=== PATIENT | male | born 1965 | race African-American/Black ===

== ENCOUNTER 2019-08-12 09:11 | Inpatient (IN) ==
[2019-08-17 14:40] VITALS: BP 146/98
== END 2019-08-17 16:49 | disposition home or self-care (01) | DRG 291 ==
LOC: P.ED 09:11 → P.EDIPHOLD 09:12 → SUATTDRO 09:12 → 2N 17:34
PROVIDERS: ATTEND Internal Medicine

== ENCOUNTER 2019-12-29 15:40 | Observation (INO) ==
--- NOTE | 2019-12-29 15:59 | PROVIDER DOCUMENTATION ---
HPI-Cardiac General - General Stated Complaint: SOB, SWELLING Time Seen by Provider: 12/29/19 15:41 Source: patient Allergies/Adverse Reactions: Patient Allergies Allergy/AdvReac Type Severity Reaction Status Date / Time No Known Allergies Allergy Verified 12/29/19 16:01 Home Medications: Home Medication List Medication Instructions Recorded Confirmed Last Taken Type ATORVAstatin [Lipitor] 40 mg PO QHS #30 tab 12/22/19 Unknown Rx Amlodipine [Norvasc] 5 mg PO DAILY #30 tab 12/22/19 Unknown Rx Apixaban [Eliquis] 5 mg PO BID #60 tab 12/22/19 Unknown Rx Carvedilol [Coreg] 25 mg PO BID #60 tab 12/22/19 Unknown Rx Furosemide [Lasix] 80 mg PO DAILY #60 tab 12/22/19 Unknown Rx Isosorb Dinit/Hydralazine [Bidil] 2 ea PO TID #180 tab 12/22/19 Unknown Rx Potassium Chloride 20 meq PO BID 14 Days tablet.er 12/22/19 Unknown Rx - History of Present Illness-Cardiac Nature of Presenting Problem: 54 YOM with PMH of CHF, [place], HTN presents with continued BLE edema, SOB since his last visit on 12/22/2019, he has not yet seen PCP but has been taking all medications. Denies CP, N/V/D, fever, chills, cough, travel, known COVID 19 exposures. He does report the SOB is worse with exertion and lying flat. Quality of Pain: reports: none Severity in ED: moderate Onset/Duration: 1 week ago Timing: still present, constant, getting worse Context/Activities at Onset: reports: none Modifying Factors: improves with: nothing Palpitation Quality: N/A History of arrythmia: reports: none Nitro Today/Relief: reports: no nitro taken today Aspirin Treatment Today: reports: 325 mg x 1, provided by ED Prior Chest Pain/Cardiac Workup: reports: heart attack (2019), stress test (PROCEDURE NAME: MYOCARDIAL PERF SCAN, STR/REST - 08/17/2019 PROCEDURE: Lexiscan Cardiolite stress test. FINDINGS: Lexiscan was infused per standard protocol. There was no chest pain. Total of 11.8 mCi of Cardiolite was injected for the rest phase; 42.2 mCi of Cardiolite was injected for the stress phase. Gated SPECT images were obtained in standard views. Images revealed left ventricle was dilated. There is chest wall and diaphragmatic attenuation. There is a moderate-size fixed defect in the inferior wall and in the anteroseptal wall. There is also a fixed defect in the inferoapical wall. Patchy defect suggestive of cardiomyopathy picture. Left ventricular ejection fraction was estimated at 28%. CONCLUSIONS: 1. Baseline atrial flutter/fibrillation noted. 2. No chest pain. 3. Myocardial perfusion images revealed no evidence of ischemia. 4. Left ventricle was dilated. There is a moderate-size fixed defect in the inferior wall and in the inferoseptal, inferoapical wall suggestive of scar. This is a cardiomyopathy picture. 5. Left ventricular ejection fraction by gated SPECT was 28%. cc: Thai Jones MD) Associated Symptoms: reports: denies symptoms Similar Symptoms Previously?: Yes Recently Seen Here or By Another Healthcare Provider: Yes (here in ED on 12/22/2019) Review of Systems - Adult - REVIEW OF SYSTEMS - ADULT Constitutional: reports: no symptoms reported. denies: chills, fever Eyes: reports: no symptoms reported. denies: decreased vision, blurred vision, double vision, eye pain Ears, Nose, Mouth & Throat: reports: no symptoms reported. denies: epistaxis, sinus problem, nose pain, loose teeth, mouth/dental pain Cardiovascular: reports: see HPI, edema, orthopnea, PND. denies: chest pain, heart murmur, irregular heart rate, palpitations Respiratory: reports: shortness of breath. denies: cough, pleurisy, wheezing Gastrointestinal: reports: other (reports feels full after small meals- early satiety). denies: abdominal pain, diarrhea, nausea Genitourinary: reports: no symptoms reported. denies: flank pain, frequent UTI's, hematuria, hesitency Musculoskeletal: reports: no symptoms reported. denies: frequent leg cramps Integumentary: reports: no symptoms reported. denies: see HPI, hives, hair loss, itching, mole changes, nail changes, rash, skin sores/ulcer, skin thickening, other Neurological: reports: no symptoms reported. denies: see HPI, ataxia, dizziness/vertigo, headache/migraines, loss of balance, numbness, paresthesia, seizure, slurred speech, syncope, tremors, other Psychiatric: reports: no symptoms reported. denies: see HPI, anxiety, anti-depressant use, alcohol/drug dependence, depression, emotional problems, insomnia, panic attacks, suicidal thoughts, other Endocrine: reports: no symptoms reported. denies: see HPI, change in skin pigment, excessive sweating, goiter, cold intolerance, heat intolerance, increased hunger, increased thirst, polyuria, other Hematologic/Lymphatic: reports: no symptoms reported. denies: see HPI, blood clots, easy bruising, low blood count, lymphedema, prolonged bleeding, swollen lymph nodes, transfusions, other Allergic/Immunologic: reports: no symptoms reported. denies: see HPI, allergic reactions, allergic rhinitis, asthma, eczema, food allergy, frequent infections, hay fever, hives, positive PPD, urticaria, other Past History - Adult - PAST MEDICAL HISTORY-ADULT Review of Records: reports: Old Records Reviewed, Nursing Assessment Review, Medications Reviewed, Social history reviewed & non-contributory. Major Childhood Illnesses: reports: denies history Cardiovascular: reports: A-Fib, CHF Respiratory: reports: denies history Gastrointestinal: reports: denies history Genitourinary: reports: denies history Musculoskeletal: reports: denies history Neurological: reports: denies history Psychiatric: reports: denies history Endocrine/Immune: reports: denies history Other Conditions: reports: denies history - PRIOR SURGERIES/PROCEDURES Surgical/Procedure History: reports: reviewed, not pertinent - IMMUNIZATION STATUS Childhood Immunizations: See Nurse Assessment Flu Vaccine: See Nurse Assessment - FAMILY HISTORY Family History: reviewed, not pertinent Physical Exam-General - PHYSICAL EXAM-ADULT Initial Vital Signs Reviewed: Yes - CONSTITUTIONAL General Appearance: alert, no apparent distress - EYES Eyes: PERRL/EOMI, pink conjunctivae - HEAD, EARS, NOSE, MOUTH & THROAT HENMT: normocephalic/atraumatic, moist mucous membranes, normal ENT inspection - NECK Neck: non-tender, full range of motion, supple - RESPIRATORY Respiratory: chest non-tender, no pleuratic chest pain, no respiratory distress, no accessory muscle use, crackles (bibasilar) - CARDIOVASCULAR Cardiovascular: normal peripheral pulses, regular rate, rhythm, JVD. negative: no edema (BLE +2 edema) - GASTROINTESTINAL (ABDOMEN) Abdominal Exam: normal bowel sounds, non tender, soft, no organomegaly, no pulsatile mass - LYMPHATIC Lymphatic: no adenopathy - MUSCULOSKELETAL Back Exam: normal inspection, no CVA tenderness, no vertebral tenderness Extremity: normal range of motion, non-tender, normal gait, pedal edema (BLE +2) Peripheral Pulses: radial (R): 2+, radial (L): 2+ - SKIN Integumentary: normal color, normal turgor, warm/dry - NEUROLOGIC Neurologic: grossly normal. negative: aphasia, facial droop, focal weakness, motor weakness - PSYCHIATRIC Psych/Mental Status: normal mood/affect, oriented x 3 Progress - PLAN OF CARE/RESULTS Progress/Plan/Lab Results: Vital Signs - 8 hr 12/29/19 15:55 Temperature 97.5 F L Pulse Rate 95 H Respiratory Rate 24 Blood Pressure 117/101 O2 Sat by Pulse Oximetry 98 Laboratory Results - last 24 hr 12/29/19 12/29/19 12/29/19 16:08 16:08 16:08 WBC RBC Hgb Hct MCV MCH MCHC RDW Std Deviation Plt Count MPV Immature Gran % (Auto) Neut % (Auto) Lymph % (Auto) Lanier % (Auto) Eos % (Auto) Baso % (Auto) Immature Gran # (Auto) Neut # (Auto) Lymph # (Auto) Lanier # (Auto) Eos # (Auto) Baso # (Auto) PT INR PTT (Actin FS) Sodium 139 Potassium 3.6 Chloride 96 L Carbon Dioxide 29 Anion Gap 15 BUN 26 H Creatinine 2.7 H Estimated GFR/1.73 m2 25 BUN/Creatinine Ratio 10 Glucose 105 H Calculated Osmolality 283 Calcium 9.3 Magnesium 2.1 Total Bilirubin 1.20 H AST 36 H ALT 24 Alkaline Phosphatase 230 H Troponin T High Sens 59 H Lid-W-Vfwfzenatdg Pept 5309 H Total Protein 7.2 Albumin 3.7 Globulin 4.0 Albumin/Globulin Ratio 1.0 12/29/19 12/29/19 16:08 16:08 WBC 3.76 L RBC 4.67 L Hgb 13.7 L Hct 41.1 L MCV 88.0 MCH 29.3 MCHC 33.3 RDW Std Deviation 14.6 H Plt Count 200 MPV 12.9 H Immature Gran % (Auto) 0.3 Neut % (Auto) 52.6 Lymph % (Auto) 28.2 Lanier % (Auto) 16.5 H Eos % (Auto) 1.9 Baso % (Auto) 0.5 Immature Gran # (Auto) 0.01 Neut # (Auto) 1.98 Lymph # (Auto) 1.06 L Lanier # (Auto) 0.62 H Eos # (Auto) 0.07 Baso # (Auto) 0.02 PT 17.6 H INR 1.37 PTT (Actin FS) 33.9 Sodium Potassium Chloride Carbon Dioxide Anion Gap BUN Creatinine Estimated GFR/1.73 m2 BUN/Creatinine Ratio Glucose Calculated Osmolality Calcium Magnesium Total Bilirubin AST ALT Alkaline Phosphatase Troponin T High Sens Qsl-K-Bwovequvigw Pept Total Protein Albumin Globulin Albumin/Globulin Ratio Orders Category Date Time Status Saline Loc NOW Care 12/29/19 15:42 Active cxr [CHEST-PORTABLE] [RAD] Stat Exams 12/29/19 15:45 Completed CBC WITH ELECTRONIC DIFF [HEME] Stat Lab 12/29/19 16:08 Completed COMPREHENSIVE METABOLIC PANEL [CHEM] Stat Lab 12/29/19 16:08 Completed MAGNESIUM [CHEM] Stat Lab 12/29/19 16:08 Completed PRO B-NATRIURETIC PEPTIDE Stat Lab 12/29/19 16:08 Completed PROTIME WITH INR [COAG] Stat Lab 12/29/19 16:08 Completed PTT [COAG] Stat Lab 12/29/19 16:08 Completed TROPONIN T HIGH SENSITIVITY Stat Lab 12/29/19 16:08 Completed Furosemide [Lasix] Med 12/29/19 17:17 Discontinued 40 mg IV NOW ONE EKG [EKG] Stat Ther 12/29/19 15:42 Draft Result Diagrams: 12/29/19 16:08 12/29/19 16:08 - REASSESSMENT Reassessment #1 Time Reassessed: 17:16 Status: unchanged (badly fluid overloaded, renal function worse than last visit, sl hypoxic, recommend admission--RWS) - EKG 1 Time of EKG reading by physician:: 16:22 EKG Read and Signed by:: Zach Smith EKG Interpretation (*Must complete 3 of following elements*): Abnormal Rate: 84 Rhythm: A-fib Minong: left QRS: normal HI Interval: normal ST Wave: non-specific ST changes Prior EKG Comparison: changes noted (no longer with RVR) - XRAY 1 XRAY Study: Chest Impression: See EMR Report (EXAM: CHEST-PORTABLE HISTORY: SOB TECHNIQUE: Single view COMPARISON: 12/22/2019 FINDINGS: The lungs are well expanded. The heart is enlarged. The vessels are not distended. There are no infiltrates. No effusion identified. IMPRESSION: Cardiomegaly Electronically signed by Jonas Bojorquez 12/29/2019 4:36 PM [id number] Interpreting Physician: Jonas Bojorquez MD Dictated Date/Time: 12/29/196 cc: Kayleigh Brooks; None,PCP) - CONSULTS/PCP/HOSPITALIST Notification #1 *Consult/PCP/Hospitalist*: Time Discussed: 17:47 Consult Disposition: Admit (40 IV lasxi BID) Departure - Departure Date of Disposition Decision: 12/29/19 Time of Disposition Decision: 17:47 DIAGNOSIS: SOB (shortness of breath), Lower extremity edema, Congestive heart failure, Elevated troponin, A-fib, Renal insufficiency, CHF exacerbation Disposition: ADMITTED INPATIENT 09 Certified Medical Emergency: Emergent Condition: Stable Referrals and Follow-Ups: None,PCP [Primary Care Provider] - - Critical Care Note This patient required my direct & personal management of CC.: No Attestation - Physician/ ASHER Attestation Patient care was provided by Advanced Practice Provider:: Yes Advanced Practice Provider:: Kayleigh Brooks Advanced Practice Provider documentation review:: The Mid-level provider documentation, treatment plan and medical decision making was reviewed by the physician who agrees with all treatment and medical decision making by the MLP. The physician spent face to face time with patient:: No Advanced Practice Provider documentation review:: Supervising physician onsite and consulted in the evaluation and care of this patient. The physician did not have a face to face encounter with the patient.
--- NOTE | 2019-12-29 16:17 | EKG Report ---
Test Performed on : 12/29/2019 4:12:09 PM Test Reason : SOB Blood Pressure : / mmHG Vent. Rate : 084 BPM Atrial Rate : 119 BPM P-R Int : 000 ms QRS Dur : 110 ms QT Int : 398 ms P-R-T Axes : 000 -67 121 degrees QTc Int : 470 ms Atrial fibrillation. Left axis deviation Anterior infarct (cited on or before 22-DEC-2019) Abnormal ECG When compared with ECG of 22-DEC-2019 14:33, (Unconfirmed) No significant change was found Unconfirmed Result
[2019-12-29 16:39] LABS: BASO# 0.02 X1000 (0.0-0.2); BASO% 0.5 % (0.0-0.8); EOS# 0.07 X1000 (0.0-0.7); EOS% 1.9 % (0.0-10.0); HEMATOCRIT 41.1 % (42.0-52.0); HEMOGLOBIN 13.7 g/dL (14.0-18.0); IMM GRAN# 0.01 X1000 (0.0-0.04); IMM GRAN% 0.3 % (0.0-0.5); LYMPH# 1.06 X1000 (1.2-3.4); LYMPH% 28.2 % (20.5-51.1); MCH 29.3 PG (27-31); MCHC 33.3 g/dL (33-37); MONO# 0.62 X1000 (0.11-0.59); MONO% 16.5 % (1.7-9.3); MPV 12.9 FL (7.4-10.4); NEUT# 1.98 X1000 (1.4-6.5); NEUT% 52.6 % (42.2-75.2); PLT 200 X1000 (130-400); RBC 4.67 XMIL (4.7-6.1); RDW 14.6 % (11.5-14.5); WBC 3.76 X1000 (4.8-10.8)
--- NOTE | 2019-12-29 16:39 | Diag Imaging Result Doc PS360 ---
EXAM: CHEST-PORTABLE HISTORY: SOB TECHNIQUE: Single view COMPARISON: 12/22/2019 FINDINGS: The lungs are well expanded. The heart is enlarged. The vessels are not distended. There are no infiltrates. No effusion identified. IMPRESSION: Cardiomegaly Electronically signed by Jonas Bojorquez 12/29/2019 4:36 PM
[2019-12-29 16:51] LABS: INR 1.37; PROTIME 17.6 Seconds (11.0-16.0)
[2019-12-29 16:52] LABS: PTT 33.9 Seconds (22.3-41.8)
[2019-12-29 16:55] LABS: ALBUMIN 3.7 g/dL (3.5-5.0); CALCIUM 9.3 mg/dL (8.8-10.2); CREATININE 2.7 mg/dL (0.7-1.2); MAGNESIUM 2.1 mg/dL (1.5-2.7); POTASSIUM 3.6 mmol/L (3.5-5.1); TOTAL BILIRUBIN 1.2 mg/dL (0.20-1.00); TOTAL PROTEIN 7.2 g/dL (6.3-8.3)
[2019-12-29] MEDS ORDERED: LASIX IV ONE (17:17)
[2019-12-29] MEDS ORDERED: ZOFRAN IV PRN (17:48)
[2019-12-29] MEDS ORDERED: MORPHINE IV PRN (17:48)
[2019-12-29] MEDS ORDERED: TYLENOL PO PRN (17:48)
[2019-12-29] MEDS: LASIX IV SCH (21:53)
--- NOTE | 2019-12-29 22:47 | HISTORY AND PHYSICAL ---
CHIEF COMPLAINT: Shortness of breath. This is a 54-year-old gentleman with a new diagnosis of heart failure. He was admitted he says last year and it was, it was in July. He had new heart failure diagnosis of systolic and diastolic, atrial flutter, kidney dysfunction, uncontrolled hypertension, cardiorenal syndrome. He has come in now with about 1 to 2 week history of shortness of breath, which was initially dyspnea on exertion, now it is all the time, orthopnea, increased weight. No chest pain but fullness, bloating and nausea, vomiting. He describes orthopnea, describes PND. He reports a weight gain of approximately almost 20 pounds, now his weight here is 245, 149. He says his baseline weight is around 233, when he was here in July he had gotten down to 220 so there is definitely an increase in weight there and he says he has not been eating because he cannot keep things down and he has an early satiety issue. Workup in the ER was consistent with heart failure, proBNP of 5309. His chest x-ray showed cardiomegaly. No clear heart failure but clinically definitely had evidence of heart failure. He was admitted for an acute CHF again presumed systolic. PAST MEDICAL HISTORY: 1. Congestive heart failure, combined systolic, diastolic, EF around 25%. 2. Dyslipidemia. 3. Hypertension. 4. Atrial flutter. PAST SURGICAL HISTORY: Denies. FAMILY HISTORY: No cardiac history. He does have positive for diabetes in mother and father. SOCIAL HISTORY: No tobacco or ethanol. He does have a history of marijuana usage. ALLERGIES: No known drug allergies. MEDICATIONS: He takes Lipitor 40, BiDil 2 t.i.d., Coreg 25 b.i.d., Eliquis 5 b.i.d., Lasix 80 daily, Norvasc 5 daily, Klor-Con 20 b.i.d. REVIEW OF SYSTEMS: Otherwise negative x10 point review of system. PHYSICAL EXAM: Blood pressure 134/96, heart rate of 79, respiratory rate 20, temperature 98.3 degrees, 100% on room air. CARDIOVASCULAR: Regular rate and rhythm. PULMONARY: Bilateral breath sounds clear to auscultation. GI: Soft, nontender, nondistended. Bowel sounds are positive. LABORATORY DATA: His white count is 3, hemoglobin and hematocrit 13, 41, platelets 200,000, INR 1.37. Creatinine 2.7, AST and ALT of 36 and 24. Troponin 59, ProBNP 5309. Chest x-ray clear. EKG I think just showed atrial fibrillation. PROBLEM LIST: 1. This is a 54-year-old male presenting with heart failure. I am not entirely sure he is compliant with all. I think he is compliant with his medications but he may not be compliant with his diet. We had a discussion about that, 2 g sodium limitation, 2 L fluid restriction. We will continue to monitor and see how he does. 2. Acute congestive heart failure exacerbation. We will continue treatment which includes IV diuretics, I may add some metolazone since he has got renal insufficiency. We will monitor his ins and outs closely, daily weights and follow. At this point I do not think we necessarily need to repeat his echocardiogram, it has been about 6 months. We may want to entertain that. Cardiology consult may be helpful but unfortunately with patient being at [facility] there may be limitations there but I may go and just discussed it. He has not followed up with Cardiology for unclear reasons. 3. Hypertension. Will continue his regular regimen and follow. 4. Chronic renal failure appears to be at baseline. I would say he is in level 3B. We will monitor that, especially with diuresis. He has not yet seen Cardiology. I am not sure who he was due to see. cc: Tang Hernandez MD [facility]
[2019-12-30 06:09] LABS: BASO# 0.02 X1000 (0.0-0.2); BASO% 0.5 % (0.0-0.8); EOS# 0.11 X1000 (0.0-0.7); HEMATOCRIT 41.4 % (42.0-52.0); HEMOGLOBIN 13.8 g/dL (14.0-18.0); IMM GRAN# 0.01 X1000 (0.0-0.04); IMM GRAN% 0.3 % (0.0-0.5); LYMPH# 1.12 X1000 (1.2-3.4); LYMPH% 30.2 % (20.5-51.1); MCH 29.3 PG (27-31); MCHC 33.3 g/dL (33-37); MCV 87.9 FL (81-99); MONO# 0.55 X1000 (0.11-0.59); MONO% 14.8 % (1.7-9.3); MPV 12.5 FL (7.4-10.4); NEUT% 51.2 % (42.2-75.2); PLT 183 X1000 (130-400); RBC 4.71 XMIL (4.7-6.1); RDW 14.6 % (11.5-14.5); WBC 3.71 X1000 (4.8-10.8)
[2019-12-30 06:34] LABS: ALBUMIN 3.6 g/dL (3.5-5.0); CALCIUM 9.3 mg/dL (8.8-10.2); CREATININE 2.2 mg/dL (0.7-1.2); POTASSIUM 3.3 mmol/L (3.5-5.1); TOTAL BILIRUBIN 1.1 mg/dL (0.20-1.00); TOTAL PROTEIN 7.1 g/dL (6.3-8.3)
[2019-12-30] MEDS ORDERED: MORPHINE IV PRN (06:46)
[2019-12-30] MEDS ORDERED: BIDIL PO SCH (09:00)
[2019-12-30] MEDS: LASIX IV SCH ×2 (11:03→21:11)
[2019-12-30] MEDS: NORVASC PO SCH (11:03)
[2019-12-30] MEDS: APRESOLINE PO SCH ×3 (11:03→21:11)
[2019-12-30] MEDS: ISORDIL PO SCH ×3 (11:03→21:11)
[2019-12-30] MEDS: COREG PO SCH ×2 (11:04→21:11)
[2019-12-30] MEDS: ELIQUIS PO SCH ×2 (11:04→21:11)
--- NOTE | 2019-12-30 14:36 | PROGRESS NOTE ---
DATE: 12/30/2019 SUBJECTIVE: Mr. Kenan Smith is a 54-year-old male. He is in no acute distress and claims that he is breathing much better now. Apparently, he was up quite a few pounds at least 20 pounds. OBJECTIVE: Vital signs: Temperature 97.9 degrees, heart rate 77, respiratory rate 18, blood pressure 137/85, and O2 saturation 100% on room air. General: Mr. Kenan Smith is a 54-year-old male. He is in no acute distress. Cardiovascular: S1, S2. Regular rate and rhythm. No rubs, gallops, or murmurs. He has probably got 2+ lower extremity pitting edema with + 2 radial pulses, +2 dorsalis pedal pulses. Negative for carotid bruits. Very mild JVD. Pulmonary: Clear to auscultation bilateral breath sounds. No accessory muscle use or work of breathing noted. Tolerating room air. GI: Soft, nontender, and nondistended. Positive bowel sounds x4. Extremities: Moves all extremities equally. Full range of motion. Neurologic: Alert and oriented x3. Follows commands. Sensory is intact. Skin: Warm, dry, and intact. LABORATORY DATA: White blood cells 3000, hemoglobin 13, hematocrit 41, and platelet count 183,000. Sodium 141, potassium 3.3, BUN 25, creatinine 2.2, glucose is 120, calcium 9.3, and bilirubin is 1.10. AST 34, ALT 24. Troponin 58. His proBNP was 5309. Albumin 3.6. No micro. IMAGING: Last EKG shows atrial fibrillation with a rate in the 80s. ASSESSMENT/PLAN: 1. Acute on chronic systolic and diastolic congestive heart failure. He was started on IV Lasix, and had a 2 L fluid restriction and low-sodium diet. He has had fluid balance of -660. He has voided at least 1400 mL that has been accounted for. Hopefully, if he continues to improve, can be discharged tomorrow, and follow up with his periodontal assistant as an outpatient. 2. Hypertension. Continue home medications. 3. CKD stage 3B. He is stable with his diuresis. 4. Chronic atrial fibrillation. Continue Eliquis and Coreg. 5. Hypertension. Continue Norvasc and Apresoline. DISCHARGE DISPOSITION: Once improved, he should be able to go home tomorrow. Dictated by FILIBERTO Goldman for Tang Hernandez MD cc: FILIBERTO Goldman MD
[2019-12-30] MEDS: ZAROXOLYN PO SCH (15:38)
[2019-12-30] MEDS ORDERED: LIPITOR PO SCH (21:00)
[2019-12-31 05:54] LABS: HEMATOCRIT 39.3 % (42.0-52.0); MCH 29.1 PG (27-31); MCHC 33.1 g/dL (33-37); MCV 88.1 FL (81-99); MPV 12.7 FL (7.4-10.4); RBC 4.46 XMIL (4.7-6.1); RDW 14.5 % (11.5-14.5); WBC 3.68 X1000 (4.8-10.8)
[2019-12-31 06:02] LABS: CALCIUM 9.2 mg/dL (8.8-10.2); MAGNESIUM 1.7 mg/dL (1.5-2.7)
[2019-12-31] MEDS: APRESOLINE PO SCH ×2 (09:27→15:00)
[2019-12-31] MEDS: COREG PO SCH (09:27)
[2019-12-31] MEDS: LASIX IV SCH (09:28)
[2019-12-31] MEDS: NORVASC PO SCH (09:28)
[2019-12-31] MEDS: ELIQUIS PO SCH (09:28)
[2019-12-31] MEDS: ZAROXOLYN PO SCH (09:28)
[2019-12-31] MEDS: ISORDIL PO SCH ×2 (09:28→15:00)
--- NOTE | 2019-12-31 11:44 | ECHO REPORT ---
ORDER DATE: 12/30/2019 INTERPRETING PHYSICIAN: Jameel Boston MD REQUESTING PHYSICIAN: Hospitalist. INDICATION: CHF. M-MODE MEASUREMENTS: Left ventricle end diastole: 5.5 cm. Left ventricle end systole: 4.6 cm. Posterior wall: 1.3 cm. Interventricular septum: 1.3 cm. Left atrium: 5.1 cm. Aortic diameter: 3.3 cm. SUMMARY OF 2-DIMENSIONAL IMAGIN. The left ventricular chamber appears to be enlarged. The left ventricular systolic function is severely impaired. Global ejection fraction is estimated at 15% to 20%. There is a mild degree of concentric LVH. 2. The left atrium is significantly enlarged. 3. The mitral valve shows a mszzpfhu-mn-ojvodsrpcg severe degree of regurgitation. 4. The patient is probably not in sinus rhythm. 5. Diastolic function cannot properly evaluated here. 6. The aortic valve has 3 cusps and they open normally. There is no stenosis. There is no regurgitation. 7. The tricuspid valve shows a vckikxid-pe-hdyfmiigyp severe degree of regurgitation. 8. The pulmonary systolic pressure is estimated at 36 mmHg to 41 mmHg. 9. The pulmonic valve shows a caob-ll-ioopmldd degree of regurgitation. 10.Pulmonary diastolic pressure is estimated at 19 mmHg to 24 mmHg. 11.There is some flattening of the interventricular septum during diastolic suggesting volume overload of the right ventricle. The right ventricle is moderately enlarged and the right atrium is significantly enlarged. 12.I do not see evidence of a pericardial effusion. CONCLUSION: In summary, this study shows: 1. Severely impaired left ventricular systolic function. The ejection fraction is 15% to 20% with a mild degree of concentric left ventricular hypertrophy. 2. Significant biatrial enlargement. 3. Moderately enlarged right ventricle. 4. Suspected pulmonary hypertension. In this particular study the pulmonary pressure is estimated at 41/24 mmHg. 5. Unremarkable aortic valve. 6. Moderate degree of mitral regurgitation and moderately severe degree of tricuspid regurgitation. The inferior vena cava is dilated. Clinical correlation is recommended. cc: MD Tang Leslie MD
[2019-12-31] MEDS ORDERED: KLOR-CON PO ONE (12:27)
[2019-12-31 15:48] VITALS: BP 111/78
--- NOTE | 2019-12-31 19:23 | DISCHARGE SUMMARY ---
ADMISSION DATE: 12/29/2019 DISCHARGE DATE: 12/31/2019 DISCHARGE DIAGNOSIS: Acute congestive heart failure exacerbation. EF has dropped a bit. It is 15% to 20%, which is decreased from previous. He has got a moderate to severe degree of mitral regurgitation. Diastolic was not able to be quantified. He has right ventricular failure, biatrial enlargement, possibly pulmonary hypertension. HOSPITAL COURSE: This is a 54-year-old male with a new diagnosis of heart failure, diastolic and systolic. He says he has been compliant with his medications, but I am suspicious he is not really compliant with his diet. Previously, his EF has been around 25%. Currently, he is down to 15% to 20%. He diuresed fairly well. He had about 4 L off in the 2 days he was here. He has never been hypoxic. He never had any pulmonary edema. He had trace lower extremity edema. He did have some abdominal edema. In total, we diuresed about 5 pounds off. Lets see, his weights are a little up and down. He came at 260 by report, diureses 20, but then his peak weight was 249, so that would be about I would say 8 pounds somewhere in that range he feels better and wants to go home. He is already on a good regimen. We reinforced diet, 2 g sodium restriction and 2 L fluid restriction. He really needs to get into cardiology for re-evaluation. DISCHARGE MEDICATIONS: Lipitor 40, BiDil 2 t.i.d., Coreg 25 b.i.d., Eliquis 5 b.i.d. Lasix was changed. I did not put him on 80 b.i.d. I put him on 40 b.i.d., but we added Norvasc 5 daily and Zaroxolyn 5 daily, Klor-Con 20 daily. DISCHARGE CONDITION: Stable. He had been on Lasix 80 and it had not been working. I think we will probably end up doing 60 b.i.d. and making sure he follows up with Cardiology. [facility]. cc: Tang Hernandez MD
== END 2019-12-31 18:11 | disposition home or self-care (01) ==
LOC: P.ED 15:40 → INTOOBSV 15:41 → SUATTDRO 15:41 → P.MEDSURG 20:28
PROVIDERS: ATTEND Internal Medicine